=== PATIENT | female | born 1955 | race African-American/Black ===

== ENCOUNTER 2024-07-03 06:55 | Day surgery (SDC) | payer OTHER ==
[~2024-07-03] VITALS: Ht 121.9 cm; Wt 36.8 kg
[~2024-07-03 06:55] MED LIST: GLYCOPYRROLATE 0.2 MG/ML VIAL ONE; LIDOCAINE/PF 2% 5 ML VIAL ONE; PROPOFOL 1% 20 ML VIAL IVP ONE; SODIUM CHLORIDE 0.9% 1,000 ML ONE
[2024-07-03] MEDS: SODIUM CHLORIDE 0.9% 1,000 ML IV ONE (08:10)
[2024-07-03] MEDS ORDERED: OXYGEN THERAPY IH SCH (20:00)
== END 2024-07-03 11:15 | disposition home or self-care (01) ==
LOC: SURGERY 06:55
PROVIDERS: ATTEND Specialist
DX: D64.9 Anemia, unspecified (principal); K63.5 Polyp of colon; R13.19 Other dysphagia; I10 Essential (primary) hypertension; F17.210 Nicotine dependence, cigarettes, uncomplicated; Z86.718 Personal history of other venous thrombosis and embolism; Z79.01 Long term (current) use of anticoagulants; Z79.899 Other long term (current) drug therapy; Z98.890 Other specified postprocedural states; Z83.3 Family history of diabetes mellitus
CPT/HCPCS: 45385; 43247; 93005; J2704; J3490 ×2; J7030; 88305

== ENCOUNTER 2024-11-12 15:37 | Emergency (ER) | payer OTHER ==
[~2024-11-12] VITALS: Ht 116.8 cm; Wt 43.1 kg
[2024-11-12 16:13] VITALS: BP 155/93; PULSE 100; RESP 18; TEMP 98.1; O2SAT 96
[2024-11-12 16:38] LABS: BASOPHILS % (AUTO) 0.3 % (0.0-2.0); EOSINOPHILS % (AUTO) 1.1 % (1.0-6.0); HEMATOCRIT 30.5 % (36-46); HEMOGLOBIN 9.9 g/dL (12.0-16.0); LYMPHOCYTES # (AUTO) 4.4 K/uL (1.0-4.8); MEAN CORPUSCULAR HEMOGLOBIN 30.9 pg (26.0-34.0); MEAN CORPUSCULAR HGB CONC 32.6 G/dL (31.0-37.0); MEAN CORPUSCULAR VOLUME 95 fL (80-100); MONOCYTES # (AUTO) 0.7 K/uL (0.1-1.0); MONOCYTES % (AUTO) 5.5 % (2.0-9.0); NEUTROPHILS % (AUTO) 57.1 % (40.0-70.0); PLATELET COUNT (AUTO) 568 K/uL (150-450); RED BLOOD CELL COUNT(AUTO) 3.21 MIL/uL (4.00-5.20); WHITE BLOOD COUNT (AUTO) 12.3 K/uL (4.5-11.0)
[2024-11-12 16:45] LABS: CREATININE 1.09 mg/dL (0.60-1.30); POTASSIUM 3.4 mmol/L (3.5-5.1)
== END 2024-11-13 | disposition left against medical advice (07) ==
LOC: EMS 15:39
DX: N93.9 Abnormal uterine and vaginal bleeding, unspecified (principal); Z53.21 Procedure and treatment not carried out due to patient leaving prior to being seen by health care provider
CPT/HCPCS: 80048; 85025